=== PATIENT | male | born 1950 | race Two or more races ===

== ENCOUNTER → 2025-06-02 | Emergency (ER) | payer OTHER ==
[~2025-06-02] VITALS: Ht 170.2 cm; Wt 98.0 kg
[~2025-06-02] MED LIST: ADULT LOW DOSE81 M1 PO; ALDACTONE25 MG PO; CEFTRIAXONE SODIUM 1,000 MG VIAL IV ONE; LASIX40 MG PO; LIPITOR40 M1 PO; METHYLPREDNISOLONE SOD SUCC 125 MG VIAL IM ONE; TOPROL XL50 M1 PO; TRIJARDY XR 121 EACH PO; VITAMIN D3 MA125 MCG PO; XARELTO20 MG; ZESTRIL2.5 MG PO
[2025-06-02 15:10] VITALS: BP 117/70; O2SAT 95
== END | disposition left against medical advice (07) ==
LOC: ER 13:53
DX: H10.9 Unspecified conjunctivitis (principal); I10 Essential (primary) hypertension; E11.9 Type 2 diabetes mellitus without complications; Z79.84 Long term (current) use of oral hypoglycemic drugs